=== PATIENT | female | born 1955 | race Caucasian/White ===

== ENCOUNTER 2018-02-08 15:16 | Emergency (ER) | payer MEDICARE, BC ==
--- NOTE | 2018-02-08 15:28 | EDM.PDOC ---
ED HPI GENERAL MEDICAL PROBLEM - General Stated Complaint: NUMBNESS ON ENTIRE RIGHT SIDE Time Seen by Provider: 02/08/18 15:16 Source of Information: Reports: Patient History Limitations: Reports: No Limitations - History of Present Illness INITIAL COMMENTS - FREE TEXT/NARRATIVE: The patient states that she went for a nap around 10:00 this morning. When she woke up around 13:00, she states that she felt dizzy/vertiginous, and had a "thunk" feeling all down her right side. She states that right side of her body felt heavy and weak, and she had numbness to the entire right side of her body. She states that it was as if her body was literally cut in half. She also reported a slight frontal headache, and an ache to her left posterior neck. The patient was brought to the ED by her neighbor, and upon arrival, it was noted that her BP was elevated at 175/92. Here in the ED, the patient continued to have dizziness/vertigo, the frontal headache, left posterior neck discomfort , and a weak feeling to the right side of her body, however, the numbness was now limited to her right lower extremity only. The patient ambulated on her own to her examination room, and was not limping. The patient denies associated symptoms, such as nausea, photophobia, phonophobia , or visual changes. The patient states that she has a prior history of sciatica, but no prior similar constellation of symptoms. The patient's PCP is Dr. Mayer. Headache Pain Score (Numeric/FACES): 8 - Related Data Allergies Allergy/AdvReac Type Severity Reaction Status Date / Time adhesive tape Allergy Rash Verified 02/08/18 16:27 celecoxib [From Celebrex] Allergy Cannot Verified 02/08/18 16:26 Remember eletriptan HBr [From Relpax] Allergy Cannot Verified 02/08/18 16:26 Remember hydroxychloroquine sulfate Allergy Cannot Verified 02/08/18 16:26 [From Plaquenil] Remember methotrexate Allergy Cannot Verified 02/08/18 16:26 Remember modafinil [From Provigil] Allergy Cannot Verified 02/08/18 16:26 Remember nabumetone [From Relafen] Allergy Cannot Verified 02/08/18 16:26 Remember Penicillins Allergy Cannot Verified 02/08/18 16:26 Remember rofecoxib [From Vioxx] Allergy Cannot Verified 02/08/18 16:26 Remember succinylcholine Allergy Cannot Verified 02/08/18 16:26 [Succinylcholine] Remember Sulfa (Sulfonamide Allergy Cannot Verified 02/08/18 16:26 Antibiotics) Remember sumatriptan [From Imitrex] Allergy Cannot Verified 02/08/18 16:26 Remember sumatriptan succinate Allergy Cannot Verified 02/08/18 16:26 [From Imitrex] Remember valdecoxib [From Bextra] Allergy Cannot Verified 02/08/18 16:26 Remember Home Meds: Home Meds ALPRAZolam [Alprazolam ODT] 1 tab PO DAILY 02/08/18 [History] Amitriptyline HCl 100 mg PO BEDTIME 02/08/18 [History] DULoxetine HCl [Cymbalta] 90 mg PO DAILY 02/08/18 [History] DULoxetine HCl [Cymbalta] 90 mg PO DAILY 02/08/18 [History] Ergocalciferol (Vitamin D2) [Vitamin D2] 2 tab PO DAILY 02/08/18 [History] Estrogens, Conjugated [Premarin] 1.25 mg PO DAILY 02/08/18 [History] Fish Oil/[place]-3 Fatty Acids [Fish Oil 1,000 MG] 1 each PO DAILY 02/08/18 [ History] Furosemide 20 mg PO DAILY 02/08/18 [History] Gabapentin [Neurontin] 600 mg PO BID 02/08/18 [History] Gabapentin [Neurontin] 900 mg PO BEDTIME 02/08/18 [History] Hydrocodone/Acetaminophen [Hydrocodon-Acetaminophn 10-325] 1 tab PO TID PRN [History] Levothyroxine Sodium [Synthroid] 125 mcg PO DAILY 02/08/18 [History] Lisinopril 40 mg PO DAILY 02/08/18 [History] Methadone HCl [Dolophine] 0.75 tab PO BEDTIME 02/08/18 [History] Methylcellulose (with Sugar) [Citrucel] 2 cap PO BEDTIME PRN 02/08/18 [History] Naproxen 1 tab PO Q12HR PRN 02/08/18 [History] Onabotulinumtoxina [Botox] 100 units IM ASDIRECTED 02/08/18 [History] PHENobarbital 2 tab PO DAILY 02/08/18 [History] Pantoprazole [ProTONIX] 6 tab PO DAILY 02/08/18 [History] Potassium Chloride 1 tab PO DAILY 02/08/18 [History] Propranolol HCl 6 tab PO DAILY 02/08/18 [History] Sertraline HCl 1.5 tab PO DAILY 02/08/18 [History] Sucralfate 1 tab PO QIDACANDBED PRN 02/08/18 [History] Topiramate 1.5 tab PO DAILY 02/08/18 [History] Zolpidem Tartrate 5 mg PO BEDTIME PRN 02/08/18 [History] amLODIPine Besylate [Amlodipine Besylate] 10 mg PO DAILY 02/08/18 [History] Past Medical History Cardiovascular History: Reports: High Cholesterol, Hypertension Gastrointestinal History: Reports: Diverticulosis, GERD Genitourinary History: Reports: Urinary Incontinence (stress incontinence) VARIETY PERFORMER History: Reports: Endometriosis Musculoskeletal History: Reports: Arthritis, Other (See Below) (Sciatica due to lumbar spinal stenosis) Neurological History: Reports: Migraines, Seizure (petit mal, last in 1980) Psychiatric History: Reports: Anxiety, Depression Endocrine/Metabolic History: Reports: Hypothyroidism, Obesity/BMI 30+ - Past Surgical History HEENT Surgical History: Reports: Oral Surgery (wisdom teeth extraction) GI Surgical History: Reports: Appendectomy, Cholecystectomy Female Surgical History: Reports: Section, Hysterectomy, Salpingo- Oophorectomy, Other (See Below) (Uterine suspension) Neurological Surgical History: Reports: Other (See Below) (Neurostimulator placed 12/30/2017) Musculoskeletal Surgical History: Reports: Carpal Tunnel (bilateral), Knee Replacement (bilateral) Social & Family History - Tobacco Use Smoking Status *Q: Never Smoker - Alcohol Use Alcohol Use History: Yes Alcohol Use Frequency: Rarely - Recreational Drug Use Recreational Drug Use: No - Living Situation & Occupation Living situation: Reports: , Alone Occupation: Disabled ED ROS GENERAL - Review of Systems Review Of Systems: ROS reveals no pertinent complaints other than HPI. ED EXAM, NEURO - Physical Exam Exam: See Below Exam Limited By: No Limitations General Appearance: Alert, WD/WN, No Apparent Distress Eye Exam: Bilateral Eye: EOMI, Normal Inspection, PERRL Ears: Normal External Exam, Hearing Grossly Normal Nose: Normal Inspection, No Blood Throat/Mouth: Normal Inspection, Normal Lips, Normal Voice, No Airway Compromise Head Exam: Atraumatic, Normocephalic Neck: Normal Inspection, Full Range of Motion Respiratory/Chest: No Respiratory Distress, Lungs Clear, Normal Breath Sounds, No Accessory Muscle Use Cardiovascular: Normal Peripheral Pulses, Regular Rate, Rhythm, No Gallop, No JVD, No Murmur, No Rub GI/Abdominal: Normal Bowel Sounds, Soft, Non-Tender, No Organomegaly, No Distention, No Abnormal Bruit, No Mass, Other (Obese) (Female) Exam: Deferred Rectal (Female) Exam: Deferred Neurological: Alert, Normal Dorsiflexion, CN II-XII Intact, Normal Plantar Flexion, Normal Gait, Oriented x 3, Abnormal Sensation (decreased, to RLE only) Back Exam: Normal Inspection, Full Range of Motion, NT Extremities: Normal Inspection, Normal Range of Motion, No Pedal Edema, Normal Capillary Refill Psychiatric: Normal Affect Skin Exam: Warm, Dry, Intact, Normal Color, No Rash EKG INTERPRETATION EKG Date: 02/08/18 Time: 15:38 Rhythm: NSR Rate (Beats/Min): 66 [place]: LAD-Left [place] Deviation P-Wave: Present QRS: LBBB (with LVH) ST-T: Normal QT: Normal Comparison: NA - No Prior EKG Course - Vital Signs Last Recorded V/S: Last Vital Signs Temp 36.5 C 02/08/18 16:00 Pulse 72 02/08/18 16:00 Resp 20 02/08/18 16:00 BP 175/92 H 02/08/18 16:00 Pulse Ox 98 02/08/18 16:00 Orthostatic Blood Pressure [ 139/69 Standing] Orthostatic Blood Pressure [ 132/71 Sitting] Orthostatic Blood Pressure [ 142/65 Supine] - Orders/Labs/Meds Orders: Active Orders 24 hr Category Date Time Status EKG Documentation Completion [RC] STAT Care 02/08/18 15:26 Active Orthostatic Vital Signs [RC] STAT Care 02/08/18 15:26 Active Labs: Laboratory Tests 02/08/18 02/08/18 02/08/18 Range/Units 15:26 16:05 16:05 WBC 5.04 (3.98-10.04) K/mm3 RBC 3.66 L (3.98-5.22) M/mm3 Hgb 11.7 (11.2-15.7) gm/L Hct 35.7 (34.1-44.9) % MCV 97.5 H (79.4-94.8) fl MCH 32.0 (25.6-32.2) pg MCHC 32.8 (32.2-35.5) g/dl RDW Std Deviation 47.1 H (36.4-46.3) fL Plt Count 229 (182-369) K/mm3 MPV 10.4 (9.4-12.3) fl Neutrophils % (Manual) 46 (40-60) % Band Neutrophils % 2 (0-10) % Lymphocytes % (Manual) 38 (20-40) % Atypical Lymphs % 0 % Monocytes % (Manual) 4 (2-10) % Eosinophils % (Manual) 9 H (0.7-5.8) % Basophils % (Manual) 1 (0.1-1.2) Toxic Granulation 1+ slight Platelet Estimate Adequate Plt Morphology Comment Normal RBC Morph Comment Normal PT (9.5-12.1) SECONDS INR APTT (24-31) SECONDS Puncture Site Lt radial ABG pH 7.40 (7.35-7.45) ABG pCO2 46.5 H (35.0-45.0) mmHg ABG pO2 54.0 L (80.0-100.0) mmHg ABG HCO3 27.9 H (22.0-26.0) meq/L ABG O2 Saturation 81.0 L (96.0-97.0) % ABG Base Excess 3.0 H (-2-2.0) Oz Test Positive O2 Delivery Device Room air Blood Gas Comments Mixed Sodium 140 (136-145) mEq/L Potassium 3.9 (3.5-5.1) mEq/L Chloride 105 (98-107) mEq/L Carbon Dioxide 29 (21-32) mEq/L Anion Gap 9.9 (5-15) BUN 15 (7-18) mg/dL Creatinine 0.9 (0.55-1.02) mg/dL Est Cr Clr Drug Dosing 45.96 mL/min Estimated GFR (MDRD) > 60 (>60) mL/min BUN/Creatinine Ratio 16.7 (14-18) Glucose 73 L (80-115) mg/dL Calcium 8.7 (8.5-10.1) mg/dL Magnesium 2.1 (1.8-2.4) mg/dl Total Bilirubin 0.4 (0.2-1.0) mg/dL AST 23 (15-37) U/L ALT 15 (14-59) U/L Alkaline Phosphatase 72 (46-116) U/L Total Protein 6.5 (6.4-8.2) g/dl Albumin 3.3 L (3.4-5.0) g/dl Globulin 3.2 gm/dL Albumin/Globulin Ratio 1.0 (1-2) Urine Color (Yellow) Urine Appearance (Clear) Urine pH (5.0-8.0) Ur Specific [place] (1.005-1.030) Urine Protein (Negative) Urine Glucose (UA) (Negative) Urine Ketones (Negative) Urine Occult Blood (Negative) Urine Nitrite (Negative) Urine Bilirubin (Negative) Urine Urobilinogen (0.2-1.0) Ur Leukocyte Esterase (Negative) Urine RBC (0-5) /hpf Urine WBC (0-5) /hpf Ur Epithelial Cells (0-5) /hpf Urine Bacteria (FEW) /hpf Urine Mucus (FEW) /hpf 02/08/18 02/08/18 Range/Units 16:05 16:45 WBC (3.98-10.04) K/mm3 RBC (3.98-5.22) M/mm3 Hgb (11.2-15.7) gm/L Hct (34.1-44.9) % MCV (79.4-94.8) fl MCH (25.6-32.2) pg MCHC (32.2-35.5) g/dl RDW Std Deviation (36.4-46.3) fL Plt Count (182-369) K/mm3 MPV (9.4-12.3) fl Neutrophils % (Manual) (40-60) % Band Neutrophils % (0-10) % Lymphocytes % (Manual) (20-40) % Atypical Lymphs % % Monocytes % (Manual) (2-10) % Eosinophils % (Manual) (0.7-5.8) % Basophils % (Manual) (0.1-1.2) Toxic Granulation Platelet Estimate Plt Morphology Comment RBC Morph Comment PT 10.2 (9.5-12.1) SECONDS INR 0.93 APTT 29 (24-31) SECONDS Puncture Site ABG pH (7.35-7.45) ABG pCO2 (35.0-45.0) mmHg ABG pO2 (80.0-100.0) mmHg ABG HCO3 (22.0-26.0) meq/L ABG O2 Saturation (96.0-97.0) % ABG Base Excess (-2-2.0) Oz Test O2 Delivery Device Blood Gas Comments Sodium (136-145) mEq/L Potassium (3.5-5.1) mEq/L Chloride (98-107) mEq/L Carbon Dioxide (21-32) mEq/L Anion Gap (5-15) BUN (7-18) mg/dL Creatinine (0.55-1.02) mg/dL Est Cr Clr Drug Dosing mL/min Estimated GFR (MDRD) (>60) mL/min BUN/Creatinine Ratio (14-18) Glucose (80-115) mg/dL Calcium (8.5-10.1) mg/dL Magnesium (1.8-2.4) mg/dl Total Bilirubin (0.2-1.0) mg/dL AST (15-37) U/L ALT (14-59) U/L Alkaline Phosphatase (46-116) U/L Total Protein (6.4-8.2) g/dl Albumin (3.4-5.0) g/dl Globulin gm/dL Albumin/Globulin Ratio (1-2) Urine Color Light yellow (Yellow) Urine Appearance Clear (Clear) Urine pH 7.0 (5.0-8.0) Ur Specific [place] 1.015 (1.005-1.030) Urine Protein Negative (Negative) Urine Glucose (UA) Negative (Negative) Urine Ketones Negative (Negative) Urine Occult Blood Negative (Negative) Urine Nitrite Negative (Negative) Urine Bilirubin Negative (Negative) Urine Urobilinogen 0.2 (0.2-1.0) Ur Leukocyte Esterase Negative (Negative) Urine RBC 0-5 (0-5) /hpf Urine WBC Not seen (0-5) /hpf Ur Epithelial Cells 0-5 (0-5) /hpf Urine Bacteria Rare (FEW) /hpf Urine Mucus Not seen (FEW) /hpf Meds: Medications Discontinued Medications Generic Name Dose Route Start Last Admin Trade Name Freq PRN Reason Stop Dose Admin Benztropine Mesylate 1 mg 02/08/18 16:18 18 16:46 Cogentin PO 02/08/18 16:19 1 mg ONETIME STA Administration Haloperidol Lactate 5 mg 02/08/18 16:18 02/08/18 16:45 Haldol IM 02/08/18 16:19 5 mg ONETIME ONE Administration - Re-Assessments/Exams Free Text/Narrative Re-Assessment/Exam: 02/08/18 15:58 CT of the head without contrast is read by Dr. Nazario as: 1. Atrophy most prominent within the frontal regions. Findings are similar to previous exams. 2. No acute intracranial abnormality is identified. The patient is not orthostatic. 02/08/18 16:18 The patient has a frontal headache and the sensation of numbness and weakness on her right side, yet on her physical examination, no weaknesses found whatsoever, and she currently reports only a funny feeling to her left lower extremity. The CT scan, as above, is negative. I suspect that the patient is suffering from a migraine, and therefore recommended to the patient that we treat her with IM Haldol and oral Cogentin. Patient has agreed. Ordinarily, we would also treat with IV fluid and Zofran, but as the patient is not suffering from any nausea or vomiting, those are not necessary at this time. 02/08/18 17:55 The patient reports that her headache and right lower extremity numbness sensation has resolved following IM Haldol, however, she states that she now feels "woozy". Case discussed with [facility] at 17:40. Case then discussed with Dr. Campo, stroke neurologist at [facility], at 17:45. He felt that even though the patient's symptoms resolved following Haldol , her symptoms were not necessarily due to migraine. He recommended workup that would include a CT angiogram of the head and neck, a MRI of the brain, and a transthoracic echocardiogram. He recommended that the patient be started on aspirin and a statin. He would be willing to accept the patient for transfer to their facility if the patient was not accepted here, or if she did not want to be admitted here. 02/08/18 18:10 The above was discussed with the patient. The patient then got her daughter on the phone, and, collectively, they prefer that the patient be transferred to [facility]. The CT of the head images have been pushed to [facility]. 02/08/18 18:16 Case discussed with Shannen at [facility] at 18:07. Case then discussed with Dr. Chau, Hospitalist at [facility], at 18: 12. He accepted the patient for transfer to their facility. I will transfer the patient by ground ambulance. 02/08/18 18:36 I have ordered 324 mg of aspirin and 40 mg of simvastatin, that the patient will receive in the emergency department prior to transfer. Departure - Departure Time of Disposition: 18:17 Disposition: DC/Tfer to Acute Hospital 02 Condition: Fair Clinical Impression: Vertigo, Headache, Paresthesia - Discharge Information *PRESCRIPTION DRUG MONITORING PROGRAM REVIEWED*: Not Applicable *COPY OF PRESCRIPTION DRUG MONITORING REPORT IN PATIENT RENÉ: Not Applicable Referrals: James Mayer MD [Primary Care Provider] - - My Orders Last 24 Hours: My Active Orders 02/08/18 15:26 EKG Documentation Completion [RC] STAT Orthostatic Vital Signs [RC] STAT - Assessment/Plan Last 24 Hours: My Active Orders 02/08/18 15:26 EKG Documentation Completion [RC] STAT Orthostatic Vital Signs [RC] STAT
--- NOTE | 2018-02-08 15:48 | CT ---
Head CT Technique: Multiple axial sections through the brain were obtained. Intravenous contrast was not utilized. Comparison: Prior head CT study of 08/27/12. MRI exam of 10/06/13. Findings: Cortical atrophy is seen within both frontal regions. These findings are stable from prior exam. No abnormal parenchymal densities are seen. No evidence of intracranial hemorrhage. No midline shift or mass effect is seen. Bone window settings were reviewed which shows no acute calvarial abnormality. Visualized sinuses are clear. Impression: 1. Atrophy most prominent within the frontal regions. Findings are similar to previous exams. 2. No acute intracranial abnormality is identified. Diagnostic code #2
[2018-02-08] MEDS ORDERED: Haloperidol Lactate 5 MG/ML SDV IM ONE (16:18)
[2018-02-08] MEDS ORDERED: Benztropine 1 MG Tab PO STA (16:18)
[2018-02-08] MEDS ORDERED: Simvastatin 40 MG Tab PO STA (18:35)
[2018-02-08] MEDS ORDERED: Aspirin 81 MG Tab.Chew PO STA (18:35)
== END 2018-02-08 19:58 ==
LOC: JD.ED 15:16
DX: R51 Headache (principal); R20.2 Paresthesia of skin; R42 Dizziness and giddiness; M54.2 Cervicalgia; Z91.09 Other allergy status, other than to drugs and biological substances; Z88.0 Allergy status to penicillin; Z79.899 Other long term (current) drug therapy; Z88.8 Allergy status to other drugs, medicaments and biological substances; Z88.2 Allergy status to sulfonamides; I10 Essential (primary) hypertension; E03.9 Hypothyroidism, unspecified; E66.9 Obesity, unspecified
CPT/HCPCS: 36415; 36600; 70450; 80053; 81001; 82803; 82962; 83735; 85007; 85027; 85610; 85730; 93005; 96372; 99285; A9270; J1630; 93010

== ENCOUNTER 2019-06-30 00:51 | Observation (INO) | payer MEDICARE, BC ==
[2019-06-30] MEDS ORDERED: Lactated Ringers 1,000 ML IV ONE (01:36)
[2019-06-30] MEDS ORDERED: Ondansetron 4 MG/2 ML SDV IVPUSH ONE (01:37)
--- NOTE | 2019-06-30 01:41 | EDM.PDOC ---
ED HPI GENERAL MEDICAL PROBLEM - General Chief Complaint: Gastrointestinal Problem Stated Complaint: [facility] Time Seen by Provider: 06/30/19 01:10 Source of Information: Reports: Patient History Limitations: Reports: No Limitations - History of Present Illness INITIAL COMMENTS - FREE TEXT/NARRATIVE: Ms. Galloway is a pleasant 63-year-old woman with a past medical history significant for GERD, diverticulosis, sciatica and chronic lower back pain due to lumbar spinal stenosis, status post a recent L4-S1 fusion, anxiety, and depression, who is brought to the ED by EMS after developing nausea and vomiting around 23:00 Thursday night, 06/28/2019. She states that she has not been able to keep anything down. No associated diarrhea, and no bloody stools. No recent fever. The patient denies eating anything recently that tasted bad or smell poorly. No recent antibiotics. No recent travel. Prior similar symptoms. The patient took only Tylenol, but no other tvat-wim-yoxhqai or home remedies prior to coming to the ED. She was given 4 mg of IV Zofran per EMS en route to the ED. Here in the ED, the patient is found to have a mildly elevated BP, but is otherwise hemodynamically stable, saturating 99% on room air. She is complaining of a headache. Other than her current illness, she denies recent fever, chills, constipation, diarrhea, abdominal pain, urinary symptoms, recent bloody bowel movements or black bowel movements, recent weight gain or weight loss, recent joint aches, or rashes. The patient's PCP is Dr. James Mayer. Her pain specialist is Dr. Rian Rose. Her Spinal Surgeon is Dr. Singh Workman. She received an influenza vaccine this season. Headache Pain Score (Numeric/FACES): 6 - Related Data Allergies Allergy/AdvReac Type Severity Reaction Status Date / Time adhesive tape Allergy Rash Verified 06/30/19 01:54 celecoxib [From Celebrex] Allergy Cannot Verified 06/30/19 01:54 Remember eletriptan HBr [From Relpax] Allergy Cannot Verified 06/30/19 01:54 Remember hydroxychloroquine sulfate Allergy Cannot Verified 06/30/19 01:54 [From Plaquenil] Remember methotrexate Allergy Cannot Verified 06/30/19 01:54 Remember modafinil [From Provigil] Allergy Cannot Verified 06/30/19 01:54 Remember nabumetone [From Relafen] Allergy Cannot Verified 06/30/19 01:54 Remember Penicillins Allergy Cannot Verified 06/30/19 01:54 Remember rofecoxib [From Vioxx] Allergy Cannot Verified 06/30/19 01:54 Remember succinylcholine Allergy Cannot Verified 06/30/19 01:54 [Succinylcholine] Remember Sulfa (Sulfonamide Allergy Cannot Verified 06/30/19 01:54 Antibiotics) Remember sumatriptan [From Imitrex] Allergy Cannot Verified 06/30/19 01:54 Remember sumatriptan succinate Allergy Cannot Verified 06/30/19 01:54 [From Imitrex] Remember valdecoxib [From Bextra] Allergy Cannot Verified 06/30/19 01:54 Remember Home Meds: Home Meds ALPRAZolam [Alprazolam ODT] 1 tab PO DAILY PRN 02/08/18 [History] Amitriptyline HCl 100 mg PO BEDTIME 02/08/18 [History] DULoxetine HCl [Cymbalta] 90 mg PO DAILY 02/08/18 [History] Ergocalciferol (Vitamin D2) [Vitamin D2] 2 tab PO TID 02/08/18 [History] Estrogens, Conjugated [Premarin] 1.25 mg PO DAILY 02/08/18 [History] Fish Oil/[place]-3 Fatty Acids [Fish Oil 1,000 MG] 1 each PO TID 02/08/18 [History ] Gabapentin [Neurontin] 600 mg PO BID 02/08/18 [History] Gabapentin [Neurontin] 900 mg PO BEDTIME 02/08/18 [History] Hydrocodone/Acetaminophen [Hydrocodon-Acetaminophn 10-325] 1 tab PO Q6H PRN [History] Levothyroxine Sodium [Synthroid] 125 mcg PO DAILY 02/08/18 [History] Lisinopril 40 mg PO DAILY 02/08/18 [History] Methylcellulose (with Sugar) [Citrucel] 2 cap PO BEDTIME PRN 02/08/18 [History] Naproxen 1 tab PO Q12HR PRN 02/08/18 [History] Onabotulinumtoxina [Botox] 100 units IM ASDIRECTED 02/08/18 [History] PHENobarbitaL [PHENobarbital] 2 tab PO DAILY 02/08/18 [History] Pantoprazole [ProTONIX] 40 tab PO BID 02/08/18 [History] Potassium Chloride 1 tab PO DAILY 02/08/18 [History] Propranolol HCl 120 mg PO DAILY 02/08/18 [History] Sertraline HCl 1.5 tab PO DAILY 02/08/18 [History] Sucralfate 1 tab PO QIDACANDBED PRN 02/08/18 [History] Topiramate 1.5 tab PO DAILY 02/08/18 [History] Zolpidem Tartrate 5 mg PO BEDTIME PRN 02/08/18 [History] amLODIPine Besylate [Amlodipine Besylate] 10 mg PO DAILY 02/08/18 [History] ALPRAZolam [Xanax] 0.25 mg PO BID 06/30/19 [History] Furosemide [Lasix] 20 mg PO DAILY 06/30/19 [History] Rosuvastatin [Crestor] 20 mg PO BEDTIME 06/30/19 [History] Past Medical History HEENT History: Reports: Impaired Vision Cardiovascular History: Reports: High Cholesterol, Hypertension Gastrointestinal History: Reports: Diverticulosis, GERD Genitourinary History: Reports: Urinary Incontinence (stress incontinence) DIRECTOR DRUG SAFETY History: Reports: Endometriosis Musculoskeletal History: Reports: Arthritis, Back Pain, Chronic (2 lumbar spinal stenosis) Neurological History: Reports: Migraines, Seizure (petit mal, last in 1980) Psychiatric History: Reports: Anxiety, Depression Endocrine/Metabolic History: Reports: Hypothyroidism Hematologic History: Reports: Anemia Dermatologic History: Reports: Eczema - Past Surgical History HEENT Surgical History: Reports: Oral Surgery (wisdom teeth extraction) GI Surgical History: Reports: Appendectomy, Cholecystectomy (2010) Female Surgical History: Reports: Section (x 1), Hysterectomy ( complete), Other (See Below) (Uterine suspension) Neurological Surgical History: Reports: Lumbar Spine (L4-S1 fusion), Other (See Below) (Neurostimulator 12/30/2017) Musculoskeletal Surgical History: Reports: Carpal Tunnel, Knee Replacement ( bilateral) Social & Family History - Tobacco Use Smoking Status *Q: Never Smoker Second Hand Smoke Exposure: No - Caffeine Use Caffeine Use: Reports: Coffee - Alcohol Use Alcohol Use History: Yes Alcohol Use Frequency: Rarely - Recreational Drug Use Recreational Drug Use: No - Living Situation & Occupation Living situation: Reports: , Alone Occupation: Disabled ED ROS GENERAL - Review of Systems Review Of Systems: Comprehensive ROS is negative, except as noted in HPI. ED EXAM, GI/ABD - Physical Exam Exam: See Below Exam Limited By: No Limitations General Appearance: Alert, WD/WN, No Apparent Distress Eyes: Bilateral: Normal Appearance, EOMI Ears: Normal External Exam, Hearing Grossly Normal Nose: Normal Inspection Throat/Mouth: Normal Inspection, Normal Lips, Normal Teeth, Normal Voice, No Airway Compromise Head: Atraumatic, Normocephalic Neck: Normal Inspection, Full Range of Motion Respiratory/Chest: No Respiratory Distress, Lungs Clear, Normal Breath Sounds, No Accessory Muscle Use Cardiovascular: Normal Peripheral Pulses, Regular Rate, Rhythm, No Gallop, No JVD, No Murmur, No Rub GI/Abdominal Exam: Normal Bowel Sounds, Soft, Non-Tender (entire abdomen), No Organomegaly, No Distention, No Abnormal Bruit, No Mass (Female) Exam: Deferred Rectal (Female) Exam: Deferred Extremities: Normal Inspection, Normal Range of Motion, No Pedal Edema, Normal Capillary Refill Neurological: Alert, Oriented, Normal Cognition, No Motor/Sensory Deficits Psychiatric: Normal Affect Skin Exam: Warm, Dry, Intact, Normal Color, No Rash Course - Vital Signs Last Recorded V/S: Last Vital Signs Temp 37.5 C 06/30/19 00:54 Pulse 93 06/30/19 00:54 Resp 18 06/30/19 00:54 BP 150/84 H 06/30/19 00:54 Pulse Ox 99 06/30/19 00:54 - Orders/Labs/Meds Orders: Active Orders 24 hr Category Date Time Status Admission Status [Patient Status] [ADT] Routine ADT 06/30/19 03:42 Active Lactated Ringers @ 125 MLS/HR(1000ml Bag) Med 06/30/19 03:45 Ordered Lactated Ringers [Ringers, Lactated] 1,000 ml IV ASDIRECTED Medication Orders Lactated Ringer's (Ringers, Lactated) 1,000 mls @ 125 mls/hr IV ASDIRECTED PATRICIA Last Admin: 06/30/19 03:43 Dose: 125 mls/hr Labs: Laboratory Tests 06/30/19 06/30/19 Range/Units 01:45 01:45 WBC 6.18 (3.98-10.04) K/mm3 RBC 4.23 (3.98-5.22) M/mm3 Hgb 13.4 (11.2-15.7) gm/dl Hct 41.1 (34.1-44.9) % MCV 97.2 H (79.4-94.8) fl MCH 31.7 (25.6-32.2) pg MCHC 32.6 (32.2-35.5) g/dl RDW Std Deviation 47.9 H (36.4-46.3) fL Plt Count 223 (182-369) K/mm3 MPV 10.7 (9.4-12.3) fl Neutrophils % (Manual) 79 H (40-60) % Band Neutrophils % 5 (0-10) % Lymphocytes % (Manual) 11 L (20-40) % Atypical Lymphs % 0 % Monocytes % (Manual) 3 (2-10) % Eosinophils % (Manual) 1 (0.7-5.8) % Basophils % (Manual) 0 L (0.1-1.2) Myelocytes % 1 Platelet Estimate Adequate Plt Morphology Comment Normal Anisocytosis 2+ moderate Macrocytosis 2+ moderate RBC Morph Comment Not Reportable Sodium 141 (136-145) mEq/L Potassium 2.6 L (3.5-5.1) mEq/L Chloride 101 (98-107) mEq/L Carbon Dioxide 26 (21-32) mEq/L Anion Gap 16.6 H (5-15) BUN 9 (7-18) mg/dL Creatinine 0.9 (0.55-1.02) mg/dL Est Cr Clr Drug Dosing TNP Estimated GFR (MDRD) > 60 (>60) mL/min BUN/Creatinine Ratio 10.0 L (14-18) Glucose 93 (80-115) mg/dL Calcium 9.0 (8.5-10.1) mg/dL Magnesium 2.0 (1.8-2.4) mg/dl Total Bilirubin 0.3 (0.2-1.0) mg/dL AST 17 (15-37) U/L ALT 19 (14-59) U/L Alkaline Phosphatase 88 (46-116) U/L Total Protein 6.9 (6.4-8.2) g/dl Albumin 3.1 L (3.4-5.0) g/dl Globulin 3.8 gm/dL Albumin/Globulin Ratio 0.8 L (1-2) Meds: Medications Generic Name Dose Route Start Last Admin Trade Name Mago PRN Reason Stop Dose Admin Lactated Ringer's 1,000 mls @ 125 mls/hr 06/30/19 03:45 06/30/19 03:43 Ringers, Lactated IV 125 mls/hr ASDIRECTED PATRICIA Administration Discontinued Medications Generic Name Dose Route Start Last Admin Trade Name Mago PRN Reason Stop Dose Admin Acetaminophen 650 mg 06/30/19 02:24 06/30/19 02:33 Tylenol PO 06/30/19 02:25 650 mg NOW ONE Administration Lactated Ringer's 1,000 mls @ 999 mls/hr 06/30/19 01:36 06/30/19 01:55 Ringers, Lactated IV 06/30/19 02:36 999 mls/hr .BOLUS ONE Administration Ondansetron HCl 4 mg 06/30/19 01:37 06/30/19 01:55 Zofran IVPUSH 06/30/19 01:38 4 mg ONETIME ONE Administration Potassium Chloride 40 meq 06/30/19 02:28 06/30/19 02:32 Klor-Con M20 PO 06/30/19 02:29 40 meq ONETIME ONE Administration - Re-Assessments/Exams Free Text/Narrative Re-Assessment/Exam: 06/30/19 01:39 Although the patient has not experienced diarrhea, she is likely suffering from viral gastroenteritis. I have ordered a CBC, CMP, and magnesium level, to make sure that she has not suffered any significant fluid or electrolyte shifts. In the meantime, the patient will be given 1 L of LR and IV Zofran. 06/30/19 02:24 Acetaminophen 650 mg was ordered to treat a headache. While the patient has a history of frequent headaches, it is possible that her current headache is a medication overuse headache, also known as a withdrawal headache, since the patient has had difficulty keeping her medications down, including her usual [place]. 06/30/19 02:31 The patient's CBC is unremarkable. Her CMP is marked before potassium depressed at 2.6, an anion gap elevated at 16.6, but with a bicarbonate normal at 26, with the remainder of her CMP being unremarkable. Her magnesium level is within normal limits at 2.0. I have ordered 40 mEq of oral potassium chloride. 06/30/19 03:33 The patient states that the Tylenol did nothing for her headache. I explained that we are in a bit of a difficult position, however, because giving her an NSAID, while it may work better than acetaminophen on her headache, would likely worsen her upset stomach. I'm aware that the patient is on chronic opioids, however, I am not going to treat a headache with an opioid. The patient states that she does not feel well enough to go home, and is agreeable to being placed into observation. I will write bridge orders. Departure - Departure Time of Disposition: 03:35 Disposition: Refer to Observation Condition: Good Clinical Impression: Hypokalemia, Nausea and vomiting - Discharge Information *PRESCRIPTION DRUG MONITORING PROGRAM REVIEWED*: Not Applicable *COPY OF PRESCRIPTION DRUG MONITORING REPORT IN PATIENT RENÉ: Not Applicable Referrals: James Mayer MD [Physician] - Rian Rose MD [Ordering Only Provider] - Singh Workman MD [Ordering Only Provider] - Forms: ED Department Discharge Sepsis Event Note - Evaluation Sepsis Screening Result: No Definite Risk - Focused Exam Vital Signs: Vital Signs Temp Pulse Resp BP Pulse Ox 06/30/19 00:54 37.5 C 93 18 150/84 H 99 Date Exam was Performed: 06/30/19 Time Exam was Performed: 04:13 - My Orders Last 24 Hours: My Active Orders 06/30/19 03:42 Admission Status [Patient Status] [ADT] Routine 06/30/19 03:45 Lactated Ringers @ 125 MLS/HR(1000ml Bag) Lactated Ringers [Ringers, Lactated] 1 ,000 ml IV ASDIRECTED - Assessment/Plan Last 24 Hours: My Active Orders 06/30/19 03:42 Admission Status [Patient Status] [ADT] Routine 06/30/19 03:45 Lactated Ringers @ 125 MLS/HR(1000ml Bag) Lactated Ringers [Ringers, Lactated] 1 ,000 ml IV ASDIRECTED
[2019-06-30] MEDS ORDERED: Acetaminophen 325 MG Tab PO ONE (02:24)
[2019-06-30] MEDS ORDERED: Potassium Chloride 20 MEQ Tab.ER PO ONE (02:28)
[2019-06-30] MEDS: Lactated Ringers 1,000 ML IV SCH ×2 (03:43→21:58)
[2019-06-30] MEDS ORDERED: Metoclopramide 10 MG/2 ML SDV IVPUSH PRN (05:11)
[2019-06-30] MEDS ORDERED: Promethazine 12.5 MG in Sodium Chloride 0.9% 50 ML IV PRN (09:49)
[2019-06-30] MEDS: Potassium Chloride 10 MEQ in Premix Bag 1 BAG IV SCH ×4 (11:12→18:55)
[2019-06-30] MEDS: Enoxaparin 40 MG/0.4 ML Syringe SUBCUT SCH (11:14)
[2019-06-30] MEDS ORDERED: Sodium Chloride 0.9% 500 ML IV ONE (11:23)
--- NOTE | 2019-06-30 15:31 | PCM.HP.2 ---
H&P History of Present Illness - General Date of Service: 06/30/19 Admit Problem/Dx: Admission Diagnosis/Problem Admission Diagnosis/Problem Nausea and vomiting - History of Present Illness Initial Comments - Free Text/Narative: 63-year-old woman with a past medical history significant for GERD, diverticulosis, sciatica and chronic lower back pain due to lumbar spinal stenosis, status post a recent L4-S1 fusion, anxiety, and depression, who is brought to the ED by EMS after developing nausea and vomiting around 23:00 Thursday night, 06/28/2019. She states that she has not been able to keep anything down. No associated diarrhea, and no bloody stools. No recent fever. The patient denies eating anything recently that tasted bad or smell poorly. No recent antibiotics. No recent travel. Prior similar symptoms. The patient took only Tylenol, but no other rhhr-nex-yqqmfbr or home remedies prior to coming to the ED. She was given 4 mg of IV Zofran per EMS en route to the ED. Here in the ED, the patient is found to have a mildly elevated BP, but is otherwise hemodynamically stable, saturating 99% on room air. She is complaining of a headache. Other than her current illness, she denies recent fever, chills, constipation, diarrhea, abdominal pain, urinary symptoms, recent bloody bowel movements or black bowel movements, recent weight gain or weight loss, recent joint aches, or rashes. Headache Pain Score (Numeric/FACES): 6 - Related Data Allergies/Adverse Reactions: Allergies Allergy/AdvReac Type Severity Reaction Status Date / Time adhesive tape Allergy Rash Verified 06/30/19 01:54 celecoxib [From Celebrex] Allergy Cannot Verified 06/30/19 01:54 Remember eletriptan HBr [From Relpax] Allergy Cannot Verified 06/30/19 01:54 Remember hydroxychloroquine sulfate Allergy Cannot Verified 06/30/19 01:54 [From Plaquenil] Remember methotrexate Allergy Cannot Verified 06/30/19 01:54 Remember modafinil [From Provigil] Allergy Cannot Verified 06/30/19 01:54 Remember nabumetone [From Relafen] Allergy Cannot Verified 06/30/19 01:54 Remember Penicillins Allergy Cannot Verified 06/30/19 01:54 Remember rofecoxib [From Vioxx] Allergy Cannot Verified 06/30/19 01:54 Remember succinylcholine Allergy Cannot Verified 06/30/19 01:54 [Succinylcholine] Remember Sulfa (Sulfonamide Allergy Cannot Verified 06/30/19 01:54 Antibiotics) Remember sumatriptan [From Imitrex] Allergy Cannot Verified 06/30/19 01:54 Remember sumatriptan succinate Allergy Cannot Verified 06/30/19 01:54 [From Imitrex] Remember valdecoxib [From Bextra] Allergy Cannot Verified 06/30/19 01:54 Remember Home Medications: Home Meds Amitriptyline HCl 100 mg PO BEDTIME 02/08/18 [History] DULoxetine HCl [Cymbalta] 90 mg PO DAILY 02/08/18 [History] Estrogens, Conjugated [Premarin] 1.25 mg PO DAILY 02/08/18 [History] Fish Oil/[place]-3 Fatty Acids [Fish Oil 1,000 MG] 1 each PO TID 02/08/18 [History ] Gabapentin [Neurontin] 600 mg PO BID 02/08/18 [History] Gabapentin [Neurontin] 900 mg PO BEDTIME 02/08/18 [History] Hydrocodone/Acetaminophen [Hydrocodon-Acetaminophn 10-325] 1 tab PO Q6H PRN [History] Levothyroxine Sodium [Synthroid] 125 mcg PO DAILY 02/08/18 [History] Lisinopril 40 mg PO DAILY 02/08/18 [History] Methylcellulose (with Sugar) [Citrucel] 2 cap PO BEDTIME PRN 02/08/18 [History] Naproxen 1 tab PO BIDMEALS 02/08/18 [History] Onabotulinumtoxina [Botox] 100 units IM ASDIRECTED 02/08/18 [History] PHENobarbitaL [PHENobarbital] 2 tab PO DAILY 02/08/18 [History] Pantoprazole [ProTONIX] 40 tab PO BID 02/08/18 [History] Potassium Chloride 1 tab PO DAILY 02/08/18 [History] Propranolol HCl 120 mg PO BEDTIME 02/08/18 [History] Sertraline HCl 1.5 tab PO DAILY 02/08/18 [History] Sucralfate 1 tab PO QIDACANDBED PRN 02/08/18 [History] Topiramate 1.5 tab PO DAILY 02/08/18 [History] Zolpidem Tartrate 2.5 mg PO BEDTIME PRN 02/08/18 [History] amLODIPine Besylate [Amlodipine Besylate] 10 mg PO DAILY 02/08/18 [History] ALPRAZolam [Alprazolam] 0.5 mg PO DAILY PRN 06/30/19 [History] ALPRAZolam [Xanax] 0.25 mg PO BID 06/30/19 [History] Ascorbic Acid [Vitamin C] 1,000 mg PO DAILY 06/30/19 [History] Cyclobenzaprine [Flexeril] 20 mg PO BID 06/30/19 [History] Furosemide [Lasix] 20 mg PO DAILY 06/30/19 [History] Multivitamin [Daily Syeda] 1 tab PO DAILY 06/30/19 [History] Propranolol [Inderal] 240 mg PO DAILY 06/30/19 [History] Rosuvastatin [Crestor] 20 mg PO BEDTIME 06/30/19 [History] Magnesium Oxide 400 mg PO BID #2 tablet 07/01/19 [Rx] Metoclopramide HCl [Reglan] 10 mg PO Q8H PRN #7 tablet 07/01/19 [Rx] Potassium Chloride [Klor-Con M20] 40 meq PO BID #6 tab.er 07/01/19 [Rx] Past Medical History HEENT History: Reports: Impaired Vision, Other (See Below) Other HEENT History: Wears glasses Cardiovascular History: Reports: Heart Murmur, High Cholesterol, Hypertension Gastrointestinal History: Reports: Diverticulosis, GERD Genitourinary History: Reports: Urinary Incontinence RECORDS MANAGER History: Reports: Endometriosis, Other OB/BYN History: Uterine suspension Musculoskeletal History: Reports: Arthritis, Back Pain, Chronic, Neck Pain, Chronic Neurological History: Reports: Migraines, Seizure, Other (See Below) Other Neuro History: Last seizure 2007 Psychiatric History: Reports: Anxiety, Depression Endocrine/Metabolic History: Reports: Hypothyroidism Hematologic History: Reports: Anemia, Blood Transfusion(s) Dermatologic History: Reports: Eczema - Infectious Disease History Infectious Disease History: Reports: Chicken Pox - Past Surgical History HEENT Surgical History: Reports: Oral Surgery Cardiovascular Surgical History: Reports: None GI Surgical History: Reports: Appendectomy, Cholecystectomy Female Surgical History: Reports: Section, Hysterectomy Neurological Surgical History: Reports: Lumbar Spine, Spinal Fusion, Other (See Below) Other Neurological Surgeries/Procedures: Botox injections to upper back and neck Musculoskeletal Surgical History: Reports: Carpal Tunnel, Knee Replacement, Other (See Below) Other Musculoskeletal Surgeries/Procedures:: Spinal fusion, spinal stimulator inserted, Social & Family History - Family History Family Medical History: Noncontributory - Tobacco Use Smoking Status *Q: Never Smoker Second Hand Smoke Exposure: No - Caffeine Use Caffeine Use: Reports: Coffee - Recreational Drug Use Recreational Drug Use: No - Living Situation & Occupation Living situation: Reports: , Alone Occupation: Disabled H&P Review of Systems - Review of Systems: Review Of Systems: See Below Free Text/Narrative: HEENT History: Reports: Impaired Vision Cardiovascular History: Reports: High Cholesterol, Hypertension Gastrointestinal History: Reports: Diverticulosis, GERD Genitourinary History: Reports: Urinary Incontinence (stress incontinence) RECORDS MANAGER History: Reports: Endometriosis Musculoskeletal History: Reports: Arthritis, Back Pain, Chronic (2 lumbar spinal stenosis) Neurological History: Reports: Migraines, Seizure (petit mal, last in 1980) Psychiatric History: Reports: Anxiety, Depression Endocrine/Metabolic History: Reports: Hypothyroidism Hematologic History: Reports: Anemia Dermatologic History: Reports: Eczema Exam - Exam Exam: See Below - Vital Signs Vital Signs: Last Vital Signs Temp 98.2 F 06/30/19 11:18 Pulse 74 06/30/19 15:24 Resp 16 06/30/19 15:24 BP 166/87 H 06/30/19 15:24 Pulse Ox 100 06/30/19 15:24 Weight: 68.492 kg - Exam Physical Exam Comments:: General Appearance: Alert, WD/WN, No Apparent Distress Eyes: Bilateral: Normal Appearance, EOMI Ears: Normal External Exam, Hearing Grossly Normal Nose: Normal Inspection Throat/Mouth: Normal Inspection, Normal Lips, Normal Teeth, Normal Voice, No Airway Compromise Head: Atraumatic, Normocephalic Neck: Normal Inspection, Full Range of Motion Respiratory/Chest: No Respiratory Distress, Lungs Clear, Normal Breath Sounds, No Accessory Muscle Use Cardiovascular: Normal Peripheral Pulses, Regular Rate, Rhythm, No Gallop, No JVD, No Murmur, No Rub GI/Abdominal Exam: Normal Bowel Sounds, Soft, Non-Tender (entire abdomen), No Organomegaly, No Distention, No Abnormal Bruit, No Mass (Female) Exam: Deferred Rectal (Female) Exam: Deferred Extremities: Normal Inspection, Normal Range of Motion, No Pedal Edema, Normal Capillary Refill Neurological: Alert, Oriented, Normal Cognition, No Motor/Sensory Deficits Psychiatric: Normal Affect Skin Exam: Warm, Dry, Intact, Normal Color, No Rash - Patient Data Result Diagrams: 06/30/19 01:45 07/01/19 08:24 Sepsis Event Note - Evaluation Sepsis Screening Result: No Definite Risk - Focused Exam Vital Signs: Vital Signs Temp Pulse Resp BP Pulse Ox 06/30/19 15:24 74 16 166/87 H 100 06/30/19 11:18 98.2 F 90 16 166/80 H 99 06/30/19 09:44 98.2 F 96 18 170/80 H 99 06/30/19 05:37 98.1 F 94 20 151/87 H 100 Date Exam was Performed: 07/05/19 Time Exam was Performed: 20:03 - Problem List (1) Nausea and vomiting SNOMED Code(s): 18299737 ICD Code: R11.2 - NAUSEA WITH VOMITING, UNSPECIFIED Status: Acute (2) Volume depletion SNOMED Code(s): 93994369 ICD Code: E86.9 - VOLUME DEPLETION, UNSPECIFIED Status: Acute (3) Hypokalemia SNOMED Code(s): 69754012 ICD Code: E87.6 - HYPOKALEMIA Status: Acute (4) Hypomagnesemia SNOMED Code(s): 169190398 ICD Code: E83.42 - HYPOMAGNESEMIA Status: Acute (5) Hypertension SNOMED Code(s): 68015162 ICD Code: I10 - ESSENTIAL (PRIMARY) HYPERTENSION Status: Acute (6) Chronic pain SNOMED Code(s): 38152136 ICD Code: G89.29 - OTHER CHRONIC PAIN Status: Acute Problem List Initiated/Reviewed/Updated: Yes Assessment/Plan Comment:: Intractable Nausea and Vomiting Volume depletion Hypokalemia Patient came in with 11 episodes of vomiting in 24 hours, unable to tolerate PO Found to be volume depleted in ED PLAN - Replete volume - Replace electrolytes - Repeat labs in AM Hypertension Borderline hypotensive on admission PLAN - Hold home medications - Replete volume Chronic pain At baseline PLAN - Continue home meds once able to tolerate PO PROPHYLAXIS DVT- ambulation, compression stockings GI- not indicated CODE STATUS: FULL CODE DISPOSITION: Patient will be admitted under observation for IV fluid repletion and symptomatic treatment. - Mortality Measure Prognosis:: Good
[2019-06-30] MEDS ORDERED: Lisinopril 20 MG Tab PO SCH (16:15)
[2019-06-30] MEDS: Furosemide 20 MG Tab PO SCH (16:26)
[2019-06-30] MEDS: amLODIPine 10 MG Tab PO SCH (16:26)
[2019-06-30] MEDS: Propranolol 40 MG Tab PO SCH (16:27)
[2019-06-30] MEDS: DULOXETINE HCL 90 MG PO SCH (17:26)
[2019-06-30] MEDS: Lisinopril 20 MG Tab PO SCH (17:53)
[2019-06-30] MEDS ORDERED: Propranolol 40 MG Tab PO SCH (21:00)
[2019-06-30] MEDS ORDERED: Gabapentin 600 MG Tab PO SCH ×2 (21:00)
[2019-06-30] MEDS ORDERED: ROSUVASTATIN 20 MG PO SCH (21:00)
[2019-06-30] MEDS ORDERED: [UNRECOGNIZED DRUG - OTHER] PO SCH (21:00)
[2019-07-01] MEDS: Lactated Ringers 1,000 ML IV SCH (05:59)
[2019-07-01] MEDS: Gabapentin 600 MG Tab PO SCH ×2 (06:01→11:01)
[2019-07-01] MEDS ORDERED: SERTRALINE HCL 100 MG PO SCH (09:00)
[2019-07-01] MEDS ORDERED: PHENOBARBITAL 64.8 MG PO SCH (09:00)
[2019-07-01] MEDS ORDERED: TOPIRAMATE 100 MG PO SCH (09:00)
[2019-07-01] MEDS ORDERED: Levothyroxine 125 MCG Tab PO SCH (09:00)
[2019-07-01] MEDS: DULOXETINE HCL 90 MG PO SCH (09:26)
[2019-07-01] MEDS: amLODIPine 10 MG Tab PO SCH (09:26)
[2019-07-01] MEDS: Furosemide 20 MG Tab PO SCH (09:26)
[2019-07-01] MEDS: Lisinopril 20 MG Tab PO SCH (09:27)
[2019-07-01] MEDS: Propranolol 40 MG Tab PO SCH (09:28)
[2019-07-01] MEDS ORDERED: Potassium Chloride 20 MEQ Tab.ER PO SCH (10:28)
[2019-07-01] MEDS ORDERED: Magnesium Oxide 400 MG Tab PO SCH (10:35)
[2019-07-01] MEDS: Enoxaparin 40 MG/0.4 ML Syringe SUBCUT SCH (10:59)
--- NOTE | 2019-07-01 12:11 | PCM.DCSUM1 ---
Discharge Summary - Hospital Course HPI Initial Comments: 63-year-old woman with a past medical history significant for GERD, diverticulosis, sciatica and chronic lower back pain due to lumbar spinal stenosis, status post a recent L4-S1 fusion, anxiety, and depression, who is brought to the ED by EMS after developing nausea and vomiting around 23:00 Thursday night, 06/28/2019. She states that she has not been able to keep anything down. No associated diarrhea, and no bloody stools. No recent fever. The patient denies eating anything recently that tasted bad or smell poorly. No recent antibiotics. No recent travel. Prior similar symptoms. The patient took only Tylenol, but no other [id number] or home remedies prior to coming to the ED. She was given 4 mg of IV Zofran per EMS en route to the ED. Here in the ED, the patient is found to have a mildly elevated BP, but is otherwise hemodynamically stable, saturating 99% on room air. She is complaining of a headache. Other than her current illness, she denies recent fever, chills, constipation, diarrhea, abdominal pain, urinary symptoms, recent bloody bowel movements or black bowel movements, recent weight gain or weight loss, recent joint aches, or rashes. - Discharge Data Discharge Date: 07/01/19 Discharge Disposition: Home, Self-Care 01 Condition: Good - Referral to Home Health Primary Care Physician: PCP None - Discharge Diagnosis/Problem(s) (1) Hypophosphatemia SNOMED Code(s): 2188121 ICD Code: E83.39 - OTHER DISORDERS OF PHOSPHORUS METABOLISM Status: Acute (2) Chronic pain SNOMED Code(s): 05969088 ICD Code: G89.29 - OTHER CHRONIC PAIN Status: Acute (3) Hypertension SNOMED Code(s): 96474483 ICD Code: I10 - ESSENTIAL (PRIMARY) HYPERTENSION Status: Acute (4) Hypokalemia SNOMED Code(s): 55687278 ICD Code: E87.6 - HYPOKALEMIA Status: Acute (5) Hypomagnesemia SNOMED Code(s): 960576587 ICD Code: E83.42 - HYPOMAGNESEMIA Status: Acute (6) Nausea and vomiting SNOMED Code(s): 70136362 ICD Code: R11.2 - NAUSEA WITH VOMITING, UNSPECIFIED Status: Acute (7) Vertigo SNOMED Code(s): 656383387 ICD Code: R42 - DIZZINESS AND GIDDINESS Status: Acute (8) Volume depletion SNOMED Code(s): 37597750 ICD Code: E86.9 - VOLUME DEPLETION, UNSPECIFIED Status: Acute - Patient Summary/Data Hospital Course: Came in with intractable nausea and vomiting Volume depleted on admission Admitted for IV fluid repletion and electrolyte replacement Discharged once able to tolerate PO - Discharge Plan *PRESCRIPTION DRUG MONITORING PROGRAM REVIEWED*: Not Applicable *COPY OF PRESCRIPTION DRUG MONITORING REPORT IN PATIENT RENÉ: Not Applicable Prescriptions/Med Rec: Magnesium Oxide 400 mg PO BID #2 tablet Metoclopramide HCl [Reglan] 10 mg PO Q8H PRN #7 tablet PRN Reason: nausea Potassium Chloride [Klor-Con M20] 40 meq PO BID #6 tab.er Home Medications: Home Meds Amitriptyline HCl 100 mg PO BEDTIME 02/08/18 [History] DULoxetine HCl [Cymbalta] 90 mg PO DAILY 02/08/18 [History] Estrogens, Conjugated [Premarin] 1.25 mg PO DAILY 02/08/18 [History] Fish Oil/Johnson-3 Fatty Acids [Fish Oil 1,000 MG] 1 each PO TID 02/08/18 [History ] Gabapentin [Neurontin] 600 mg PO BID 02/08/18 [History] Gabapentin [Neurontin] 900 mg PO BEDTIME 02/08/18 [History] Hydrocodone/Acetaminophen [Hydrocodon-Acetaminophn 10-325] 1 tab PO Q6H PRN [History] Levothyroxine Sodium [Synthroid] 125 mcg PO DAILY 02/08/18 [History] Lisinopril 40 mg PO DAILY 02/08/18 [History] Methylcellulose (with Sugar) [Citrucel] 2 cap PO BEDTIME PRN 02/08/18 [History] Naproxen 1 tab PO BIDMEALS 02/08/18 [History] Onabotulinumtoxina [Botox] 100 units IM ASDIRECTED 02/08/18 [History] PHENobarbitaL [PHENobarbital] 2 tab PO DAILY 02/08/18 [History] Pantoprazole [ProTONIX] 40 tab PO BID 02/08/18 [History] Potassium Chloride 1 tab PO DAILY 02/08/18 [History] Propranolol HCl 120 mg PO BEDTIME 02/08/18 [History] Sertraline HCl 1.5 tab PO DAILY 02/08/18 [History] Sucralfate 1 tab PO QIDACANDBED PRN 02/08/18 [History] Topiramate 1.5 tab PO DAILY 02/08/18 [History] Zolpidem Tartrate 2.5 mg PO BEDTIME PRN 02/08/18 [History] amLODIPine Besylate [Amlodipine Besylate] 10 mg PO DAILY 02/08/18 [History] ALPRAZolam [Alprazolam] 0.5 mg PO DAILY PRN 06/30/19 [History] ALPRAZolam [Xanax] 0.25 mg PO BID 06/30/19 [History] Ascorbic Acid [Vitamin C] 1,000 mg PO DAILY 06/30/19 [History] Cyclobenzaprine [Flexeril] 20 mg PO BID 06/30/19 [History] Furosemide [Lasix] 20 mg PO DAILY 06/30/19 [History] Multivitamin [Daily Syeda] 1 tab PO DAILY 06/30/19 [History] Propranolol [Inderal] 240 mg PO DAILY 06/30/19 [History] Rosuvastatin [Crestor] 20 mg PO BEDTIME 06/30/19 [History] Magnesium Oxide 400 mg PO BID #2 tablet 07/01/19 [Rx] Metoclopramide HCl [Reglan] 10 mg PO Q8H PRN #7 tablet 07/01/19 [Rx] Potassium Chloride [Klor-Con M20] 40 meq PO BID #6 tab.er 07/01/19 [Rx] Patient Handouts: Hypokalemia, Nausea and Vomiting, Adult, [id number] Referrals: James Mayer MD [Physician] - 07/04/19 8:30 am (Please follow up with Dr. Mayer on July 04 at 8:30. Please come 15 minutes before appointment to register.) - Discharge Summary/Plan Comment DC Time >30 min.: No - General Info Date of Service: 07/01/19 Subjective Update: Tolerating diet No vomiting episodes Slept OK Ambulating - Patient Data Vitals - Most Recent: Last Vital Signs Temp 97.9 F 07/01/19 08:11 Pulse 80 07/01/19 08:11 Resp 12 07/01/19 08:11 BP 157/80 H 07/01/19 09:26 Pulse Ox 99 07/01/19 08:11 Weight - Most Recent: 68.492 kg I&O - Last 24 hours: Intake & Output 06/30/19 07/01/19 07/01/19 22:59 06:59 14:59 Intake Total 1855 1624 420 Output Total 1050 1525 Balance 805 99 420 Lab Results - Last 24 hrs: Laboratory Results - last 24 hr 07/01/19 07/01/19 Range/Units 08:24 08:24 Sodium 142 (136-145) mEq/L Potassium 3.0 L (3.5-5.1) mEq/L Chloride 105 (98-107) mEq/L Carbon Dioxide 30 (21-32) mEq/L Anion Gap 10.0 (5-15) BUN 5 L (7-18) mg/dL Creatinine 0.8 (0.55-1.02) mg/dL Est Cr Clr Drug Dosing 51.03 mL/min Estimated GFR (MDRD) > 60 (>60) mL/min BUN/Creatinine Ratio 6.3 L (14-18) Glucose 119 H (80-115) mg/dL Calcium 8.6 (8.5-10.1) mg/dL Phosphorus 1.9 L (2.6-4.7) mg/dL Magnesium 1.7 L (1.8-2.4) mg/dl Med Orders - Current: Current Medications Amlodipine Besylate (Norvasc) 10 mg PO DAILY [facility] Last Admin: 07/01/19 09:26 Dose: 10 mg Enoxaparin Sodium (Lovenox) 40 mg SUBCUT Q24H [facility] Last Admin: 07/01/19 10:59 Dose: 40 mg Furosemide (Lasix) 20 mg PO DAILY [facility] Last Admin: 07/01/19 09:26 Dose: 20 mg Gabapentin (Neurontin) 900 mg PO BEDTIME [facility] Last Admin: 06/30/19 20:57 Dose: 900 mg Gabapentin (Neurontin) 600 mg PO BID@0600,1200 [facility] Last Admin: 07/01/19 11:01 Dose: 600 mg Lactated Ringer's (Ringers, Lactated) 1,000 mls @ 125 mls/hr IV ASDIRECTED [facility] Last Admin: 07/01/19 05:59 Dose: 125 mls/hr Promethazine HCl 12.5 mg/ (Sodium Chloride) 50.5 mls @ 100 mls/hr IV Q12H PRN PRN Reason: Vomiting Last Admin: 06/30/19 10:17 Dose: 100 mls/hr Levothyroxine Sodium (Levothyroxine) 125 mcg PO DAILY [facility] Last Admin: 07/01/19 09:26 Dose: 125 mcg Lisinopril (Prinivil) 40 mg PO DAILY [facility] Last Admin: 07/01/19 09:27 Dose: Not Given Magnesium Oxide (Magnesium Oxide) 400 mg PO BID [facility] Stop: 07/01/19 21:01 Last Admin: 07/01/19 10:59 Dose: 400 mg Metoclopramide HCl (Reglan) 10 mg IVPUSH Q8H PRN PRN Reason: Nausea/Vomiting Last Admin: 06/30/19 05:23 Dose: 10 mg Amitriptyline Hcl Amitriptyline Hcl] 100 Mg 0 mg PO BEDTIME [facility] Last Admin: 06/30/19 20:56 Dose: 10 mg Duloxetine Hcl 90 Mg Pt's Own Medication 90 mg PO DAILY [facility] Last Admin: 07/01/19 09:26 Dose: 90 mg Phenobarbital 64.8mg (Tab Pt's Own Med) 0 tab PO DAILY [facility] Last Admin: 07/01/19 09:26 Dose: 2 tab Rosuvastatin 20mg Tab Pt's Own Medication 0 each PO BEDTIME [facility] Last Admin: 06/30/19 21:02 Dose: 10 each Sertraline Hcl 100mg Tab *Pt's Own Medication 0 tab PO DAILY [facility] Last Admin: 07/01/19 09:26 Dose: 1.5 tab Potassium Chloride (Klor-Con M20) 40 meq PO BID [facility] Stop: 07/02/19 21:01 Last Admin: 07/01/19 10:59 Dose: 40 meq Propranolol HCl (Inderal) 240 mg PO DAILY [facility] Last Admin: 07/01/19 09:28 Dose: 160 mg Propranolol HCl (Inderal) 120 mg PO BEDTIME [facility] Last Admin: 06/30/19 20:57 Dose: Not Given Topiramate (Topamax) 150 mg PO DAILY [facility] Last Admin: 07/01/19 09:27 Dose: 150 mg Discontinued Medications Acetaminophen (Tylenol) 650 mg PO NOW ONE Stop: 06/30/19 02:25 Last Admin: 06/30/19 02:33 Dose: 650 mg Gabapentin (Neurontin) 600 mg PO BID [facility] Lactated Ringer's (Ringers, Lactated) 1,000 mls @ 999 mls/hr IV .BOLUS ONE Stop: 06/30/19 02:36 Last Admin: 06/30/19 01:55 Dose: 999 mls/hr Potassium Chloride 10 meq/ (Premix) 100 mls @ 100 mls/hr IV Q1H PATRICIA Stop: 06/30/19 13:59 Last Admin: 06/30/19 18:55 Dose: 100 mls/hr Sodium Chloride (Normal Saline) 500 mls @ 125 mls/hr IV ONETIME ONE Stop: 06/30/19 15:22 Last Admin: 06/30/19 11:31 Dose: 125 mls/hr Lisinopril (Prinivil) 40 mg PO DAILY [facility] Ondansetron HCl (Zofran) 4 mg IVPUSH ONETIME ONE Stop: 06/30/19 01:38 Last Admin: 06/30/19 01:55 Dose: 4 mg Potassium Chloride (Klor-Con M20) 40 meq PO ONETIME ONE Stop: 06/30/19 02:29 Last Admin: 06/30/19 02:32 Dose: 40 meq - Exam General: Reports: Alert, Oriented, Cooperative, No Acute Distress HEENT: Reports: Pupils Equal, Pupils Reactive, EOMI, Mucous Membr. Moist/[place] Neck: Reports: Supple, Trachea Midline, No Thyromegaly. Denies: Lymphadenopathy Lungs: Reports: Clear to Auscultation, Normal Respiratory Effort. Denies: Crackles, Rales, Rhonchi, Rub, Wheezing Cardiovascular: Reports: Regular Rate, Regular Rhythm. Denies: Murmurs, Gallops , Rubs GI/Abdominal Exam: Normal Bowel Sounds, Soft, Non-Tender, No Organomegaly. No: Distended, Guarding, Rigid, Rebound Back Exam: Reports: Normal Inspection Extremities: Normal Inspection, No Pedal Edema, Normal Capillary Refill Skin: Reports: Warm, Dry Neurological: Reports: No New Focal Deficit
== END 2019-07-01 15:25 | disposition home or self-care (01) ==
LOC: JD.ED 00:51 → JD.MS 04:43
PROVIDERS: ADMIT Internal Medicine; ATTEND Internal Medicine
DX: R11.2 Nausea with vomiting, unspecified (principal); R51 Headache; K21.9 Gastro-esophageal reflux disease without esophagitis; F32.9 Major depressive disorder, single episode, unspecified; F41.9 Anxiety disorder, unspecified; E78.00 Pure hypercholesterolemia, unspecified; I10 Essential (primary) hypertension; M19.90 Unspecified osteoarthritis, unspecified site; E03.9 Hypothyroidism, unspecified; Z91.048 Other nonmedicinal substance allergy status; Z88.8 Allergy status to other drugs, medicaments and biological substances; Z88.0 Allergy status to penicillin; Z88.2 Allergy status to sulfonamides; Z79.899 Other long term (current) drug therapy
CPT/HCPCS: 36415; 80048; 80053; 83735; 84100; 85007; 85027; A9270; J1650; J2405; J2550; J2765; J3480; J7040; J7050; J7120; 96361; 96365; 96366; 96367; 96372; 96374; 96375; 99217; 99219; 99285; 99285-25; G0378

== ENCOUNTER 2022-02-11 10:19 | Emergency (ER) | payer MEDICARE, BC ==
[2022-02-11] MEDS ORDERED: Sodium Chloride 0.9% 10 ML Syringe FLUSH PRN (11:23)
[2022-02-11] MEDS ORDERED: Acetaminophen 325 MG Tab PO ONE (11:25)
[2022-02-11 12:27] LABS: ESTIMATED GFR 70 mL/min (>60)
[2022-02-11] MEDS ORDERED: Sodium Chloride 0.9% 1,000 ML IV STA (12:37)
[2022-02-11] MEDS ORDERED: Furosemide 40 MG/4 ML VIAL IV ONE (12:38)
[2022-02-11] MEDS ORDERED: Ketorolac 30 MG/ML SDV IVPUSH ONE (15:33)
[2022-02-11 16:40] LABS: ESTIMATED GFR 95 mL/min (>60)
== END 2022-02-11 18:08 | disposition home or self-care (01) ==
LOC: JD.ED 10:19
DX: E87.1 Hypo-osmolality and hyponatremia (principal); I10 Essential (primary) hypertension; E78.00 Pure hypercholesterolemia, unspecified; K21.9 Gastro-esophageal reflux disease without esophagitis; Z79.82 Long term (current) use of aspirin; Z79.899 Other long term (current) drug therapy
CPT/HCPCS: 36415; 80048; 80053; 81001; 83735; 85025; 96361; 96374; 96375; 99283; A9270; J1885; J1940; J3490; J7030; 99284

== ENCOUNTER 2023-05-06 06:20 | Day surgery (SDC) | payer MEDICARE, BC ==
[~2023-05-06 06:20] MED LIST: Lactated Ringers 1,000 ML IV SCH; Sodium Chloride 0.9% 10 ML Syringe FLUSH PRN; Sodium Chloride 0.9% 10 ML Syringe FLUSH SCH
[2023-05-06] MEDS ORDERED: dexmedeTOMIDine HCl 200 MCG/2 ML SDV ONE (06:32)
[2023-05-06] MEDS ORDERED: Ropivacaine 0.5% 5 MG/ML 30 ML SDV ONE (06:32)
[2023-05-06] MEDS ORDERED: Midazolam 1 MG/ML 2 ML SDV ONE (06:34)
[2023-05-06] MEDS ORDERED: fentaNYL 250 MCG/5 ML SDV ONE (06:34)
[2023-05-06] MEDS ORDERED: Dexamethasone 4 MG/ML 5 ML MDV ONE (06:44)
[2023-05-06] MEDS ORDERED: EPINEPHrine 1 MG/ML SDV ONE (06:53)
[2023-05-06] MEDS ORDERED: Propofol 200 MG/20 ML SDV ONE (07:03)
[2023-05-06] MEDS ORDERED: Lidocaine 1% PF 2 ML SDV ONE (07:15)
[2023-05-06] MEDS ORDERED: ceFAZolin 2 GM Vial ONE (07:20)
[2023-05-06] MEDS ORDERED: Ondansetron 4 MG/2 ML SDV ONE (07:27)
[2023-05-06] MEDS ORDERED: ePHEDrine 50 MG/ML SDV ONE (07:30)
[2023-05-06] MEDS: Morphine 8 MG, EPINEPHrine 0.3 MG, Cefuroxime 750 MG, Ketorolac 30 MG, Sodium Chloride ... PRN ×10 (08:15→09:30)
[2023-05-06] MEDS: Tranexamic Acid 1,000 MG/10 ML Vial ONE ×2 (08:16→09:30)
[2023-05-06] MEDS ORDERED: HYDROmorphone 0.5 MG/0.5 ML Syringe ONE (08:17)
[2023-05-06] MEDS: Vancomycin 1 GM SDV ONE ×2 (08:24→09:30)
[2023-05-06] MEDS ORDERED: fentaNYL 100 MCG/2 ML SDV ONE (08:30)
[2023-05-06] MEDS ORDERED: HYDROmorphone 0.5 MG/0.5 ML Syringe IVPUSH PRN (08:33)
[2023-05-06] MEDS ORDERED: fentaNYL 100 MCG/2 ML SDV IVPUSH PRN (08:33)
[2023-05-06] MEDS ORDERED: Lactated Ringers 1,000 ML ONE (09:23)
[2023-05-06] MEDS ORDERED: oxyCODONE 5 MG Tab PO PRN (12:00)
== END 2023-05-06 13:40 | disposition home or self-care (01) ==
LOC: JD.SDS 06:20
PROVIDERS: ATTEND Orthopaedic Surgery
DX: T84.84XA Pain due to internal orthopedic prosthetic devices, implants and grafts, initial encounter (principal); I11.0 Hypertensive heart disease with heart failure; I50.9 Heart failure, unspecified; K21.9 Gastro-esophageal reflux disease without esophagitis; E03.9 Hypothyroidism, unspecified; E78.5 Hyperlipidemia, unspecified; E55.9 Vitamin D deficiency, unspecified; F32.A Depression, unspecified; M85.80 Other specified disorders of bone density and structure, unspecified site; Z79.890 Hormone replacement therapy; Z79.899 Other long term (current) drug therapy; Z88.2 Allergy status to sulfonamides
CPT/HCPCS: 0055T; 27487; 73560; 97116; 97161; A9270; C1713; C1776; J0171; J0690; J0697; J1100; J1170; J1885; J2250; J2270; J2405; J2704; J2795; J3010; J3370; J7030; J7120; 01402; 64447; J3490